=== PATIENT | male | born 1980 | race Caucasian/White ===

== ENCOUNTER 2017-03-24 21:14 | Emergency (ER) | payer OTHER ==
[~2017-03-24] VITALS: Ht 185.4 cm; Wt 70.2 kg
[~2017-03-24 21:14] MED LIST: HYDR1TAB14 PO; IBUP-1484 PO; clindamycin PO
[2017-03-24] MEDS ORDERED: CEFTRIAXONE PMX 1GM/50ML 50 ML IV ONE (23:00)
[2017-03-24] MEDS ORDERED: AMPICILLIN/SULBACTAM 3 GM in SODIUM CHLORIDE 0.9% 100 ML IVPB ONE (23:00)
[2017-03-24] MEDS ORDERED: SODIUM CHLORIDE 0.9% 1,000ML IVBOLUS ONE (23:00)
[2017-03-24 23:05] LABS: HEMATOCRIT 43.6 % (39.2-51.8); HEMOGLOBIN 14.8 g/dL (13.7-18.0); WHITE BLOOD COUNT 9.5 x10^3/uL (3.4-10)
[2017-03-24 23:13] LABS: BLOOD UREA NITROGEN 13 mg/dL (7-18)
[2017-03-24] MEDS ORDERED: SULFAMETH./TRIMETHOPRIM DS 800MG/160MG TABLET PO ONE (23:30)
[2017-03-24] MEDS ORDERED: SULFAMETH./TRIMETHOPRIM DS 800MG/160MG TABLET ONE (23:43)
[2017-03-24] MEDS ORDERED: CEFTRIAXONE PMX 1GM/50ML 50 ML ONE (23:43)
[2017-03-25 00:36] VITALS: BP 136/81
== END 2017-03-25 00:39 | disposition home or self-care (01) ==
LOC: ED 23:25
DX: L03.115 Cellulitis of right lower limb (principal); Z88.0 Allergy status to penicillin; Z88.1 Allergy status to other antibiotic agents; F17.200 Nicotine dependence, unspecified, uncomplicated
CPT/HCPCS: 36415; 73590; 80048; 82040; 85025; 96365; 99285; J0696; J7030

== ENCOUNTER 2017-12-24 08:22 | Emergency (ER) | payer OTHER ==
[~2017-12-24] VITALS: Ht 185.4 cm; Wt 67.9 kg
[~2017-12-24 08:22] MED LIST changes: +CEFD300C37 PO; +IBUP200C5 PO; +SULF1TAB23 PO
[2017-12-24 08:34] VITALS: BP 128/80
[2017-12-24] MEDS ORDERED: CEFTRIAXONE 1,000 MG ONE (09:06)
[2017-12-24] MEDS ORDERED: LIDOCAINE-MPF 1%, 5ML ONE (09:07)
[2017-12-24] MEDS ORDERED: CEFTRIAXONE 1,000 MG IM ONE (09:30)
== END 2017-12-24 09:44 | disposition home or self-care (01) ==
LOC: ED 09:38
DX: S60.561A Insect bite (nonvenomous) of right hand, initial encounter (principal); L03.113 Cellulitis of right upper limb; Z88.0 Allergy status to penicillin; Z88.1 Allergy status to other antibiotic agents; W57.XXXA Bitten or stung by nonvenomous insect and other nonvenomous arthropods, initial encounter; Y93.I9 Activity, other involving external motion; Y99.8 Other external cause status; Y92.89 Other specified places as the place of occurrence of the external cause
CPT/HCPCS: 96372; 99283; J0696

== ENCOUNTER 2018-01-05 07:55 | Emergency (ER) | payer OTHER ==
[~2018-01-05] VITALS: Ht 185.4 cm; Wt 70.1 kg
[2018-01-05 09:29] VITALS: BP 126/79
== END 2018-01-05 09:31 | disposition home or self-care (01) ==
LOC: ED 09:25
DX: S90.561A Insect bite (nonvenomous), right ankle, initial encounter (principal); L03.115 Cellulitis of right lower limb; F17.210 Nicotine dependence, cigarettes, uncomplicated; W57.XXXA Bitten or stung by nonvenomous insect and other nonvenomous arthropods, initial encounter; Y93.89 Activity, other specified; Y92.89 Other specified places as the place of occurrence of the external cause; Y99.8 Other external cause status
CPT/HCPCS: 99283